=== PATIENT | female | born 1965 ===

== ENCOUNTER 2025-06-19 10:15 | Inpatient (IN) | payer OTHER ==
[~2025-06-19] VITALS: Ht 160 cm; Wt 113.4 kg
[2025-06-19] MEDS ORDERED: METFORMIN HCL500 M3 PO (13:06)
[2025-06-19] MEDS ORDERED: COZAAR25 MG PO (13:07)
[2025-06-19] MEDS ORDERED: GLIPIZIDE XL10 MG PO (13:07)
[2025-06-19] MEDS ORDERED: PROAIR RESPICL90 MCG IH (13:08)
[2025-06-19] MEDS ORDERED: SYNJARDY XR 121 EACH PO (13:08)
[2025-06-19] MEDS ORDERED: ZYRTEC10 M3 PO (13:08)
[2025-06-19] MEDS ORDERED: ROSUVASTATIN CA40 MG PO (13:08)
[2025-06-19] MEDS ORDERED: VENTOLIN HFA18 GM IH (13:08)
[2025-06-19 13:09] VITALS: BP 130/84
[2025-06-19 13:28] LABS: COVID-19 AG NEGATIVE (NEGATIVE)
[2025-06-19 14:22] VITALS: BP 122/78
[2025-06-19 15:35] LABS: RH POSITIVE
[2025-06-28] MEDS ORDERED: THROMBIN,HU/FIBRINOGEN/CALCIUM 10 ML SYRINGE TOP ONE (08:15)
[2025-06-28] MEDS ORDERED: POVIDONE-IODINE 118 ML BOTT TOP ONE (08:15)
[2025-06-28] MEDS ORDERED: CEFAZOLIN SODIUM 1,000 MG VIAL IV ONE (08:15)
[2025-06-28] MEDS ORDERED: METRONIDAZOLE/SODIUM CHLORIDE 500 MG/100 ML PIGGYBACK IV ONE (08:15)
[2025-06-28] MEDS ORDERED: VISTASEAL DUAL APPICATOR 1 EACH APPL TOP ONE (08:15)
[2025-06-28] MEDS ORDERED: KETOROLAC TROMETHAMINE 30 MG VIAL IV ONE (09:00)
[2025-06-28] MEDS ORDERED: METOCLOPRAMIDE HCL 5 MG/ML VIAL IV SCH (09:00)
[2025-06-28] MEDS ORDERED: FAMOTIDINE/PF 20 MG/2 ML VIAL IV PUSH SCH (09:00)
[2025-06-28] MEDS ORDERED: DOCUSATE SODIUM 100MG CAP PO SCH (09:00)
[2025-06-28] MEDS ORDERED: OxyCODONE HCL 5 MG TABLET (ROXICODONE) PO PRN (09:00)
[2025-06-28] MEDS ORDERED: SIMETHICONE 125 MG CAPSULE PO SCH (09:00)
[2025-06-28] MEDS ORDERED: CEFAZOLIN SODIUM 1,000 MG VIAL IV SCH (09:00)
[2025-06-28] MEDS ORDERED: RINGERS SOLUTION,LACTATED 1,000 ML IV SCH (09:00)
[2025-06-28] MEDS ORDERED: MORPHINE SULFATE 4 MG/ML CARTRIDGE IV PRN (09:00)
[2025-06-28] MEDS ORDERED: SUGAMMADEX SODIUM 200 MG/2 ML VIAL IV ONE (09:45)
[2025-06-28] MEDS ORDERED: KETOROLAC TROMETHAMINE 30 MG VIAL ONE (09:58)
[2025-06-28] MEDS ORDERED: FAMOTIDINE/PF 20 MG/2 ML VIAL ONE (09:59)
[2025-06-28] MEDS ORDERED: CEFAZOLIN SODIUM 1,000 MG VIAL ONE (09:59)
[2025-06-28] MEDS ORDERED: METOCLOPRAMIDE HCL 5 MG/ML VIAL ONE (10:42)
[2025-06-28 11:18] LABS: BASO % 0.2 % (0.1-1.2); EOS # 0.07 (0.04-0.54); EOS % 0.5 % (0.7-7.0); LYMPH # 2.15 (1.18-3.74); LYMPH % 14.4 % (19.3-53.1); MEAN PLATELET VOLUME 10.50 fl (9.4-12.4); MONO # 0.75 (0.24-0.82); MONO % 5.0 % (4.7-12.5); NEUT # 11.83 (1.56-6.13); NEUT % 79.5 % (34.0-71.1); RED CELL DISTRIBUTION WIDTH 13.7 % (11.6-14.4)
[2025-06-28 12:00] VITALS: BP 122/78
[2025-06-28] MEDS ORDERED: ACETAMINOPHEN 500 MG GEL..CAP PO SCH (12:00)
[2025-06-28 12:35] LABS: BUN CREA RATIO 18.0 (7.0-25.0); CREATININE SERUM 0.57 mg/dL (0.55-1.02); GFR 107.83; GLUCOSE FASTING 116.0 mg/dL (65-100); OSMOLALITY SERUM 283.0 MOSM/KG (275-295)
[2025-06-28 16:00] VITALS: BP 125/79; O2SAT 97
[2025-06-28] MEDS ORDERED: INSULIN LISPRO 1,000 UNIT/10 ML UNITS SUBCUTANEO PRN (17:00)
[2025-06-28] MEDS ORDERED: IPRATROPIUM/ALBUTEROL SULFATE 3 ML AMPUL.NEB IH SCH (17:00)
[2025-06-28] MEDS ORDERED: ENALAPRILAT DIHYDRATE 1.25 MG/ML VIAL IV PRN (17:00)
[2025-06-28] MEDS ORDERED: DEXTROSE 50 % IN WATER 0.5 G/ML VIAL IV PRN (17:00)
[2025-06-28] MEDS ORDERED: GABAPENTIN 300 MG CAPSULE PO SCH (21:00)
[2025-06-28] MEDS ORDERED: CELECOXIB 200 MG CAPSULE PO SCH (21:00)
[2025-06-28 21:03] VITALS: BP 106/73
[2025-06-29 00:24] VITALS: BP 159/70; O2SAT 97
[2025-06-29 04:43] LABS: BASO % 0.1 % (0.1-1.2); EOS # 0.19 (0.04-0.54); EOS % 2.1 % (0.7-7.0); LYMPH # 2.20 (1.18-3.74); LYMPH % 23.8 % (19.3-53.1); MEAN PLATELET VOLUME 10.70 fl (9.4-12.4); MONO # 0.65 (0.24-0.82); MONO % 7.0 % (4.7-12.5); NEUT # 6.17 (1.56-6.13); NEUT % 66.7 % (34.0-71.1); RED CELL DISTRIBUTION WIDTH 13.7 % (11.6-14.4)
[2025-06-29 05:04] LABS: BUN CREA RATIO 14.0 (7.0-25.0); CREATININE SERUM 0.42 mg/dL (0.55-1.02); GFR 153.38; GLUCOSE FASTING 121.0 mg/dL (65-100); OSMOLALITY SERUM 288.0 MOSM/KG (275-295)
[2025-06-29 08:02] LABS: BASO % 0.2 % (0.1-1.2); EOS # 0.21 (0.04-0.54); EOS % 2.5 % (0.7-7.0); LYMPH # 2.01 (1.18-3.74); LYMPH % 24.3 % (19.3-53.1); MEAN PLATELET VOLUME 9.80 fl (9.4-12.4); MONO # 0.58 (0.24-0.82); MONO % 7.0 % (4.7-12.5); NEUT # 5.42 (1.56-6.13); NEUT % 65.8 % (34.0-71.1); RED CELL DISTRIBUTION WIDTH 13.9 % (11.6-14.4)
[2025-06-29 08:44] VITALS: BP 140/76; O2SAT 96
[2025-06-29] MEDS ORDERED: ENOXAPARIN SODIUM 40 MG/0.4 ML SYRINGE SUBCUTANEO SCH (09:00)
[2025-06-29] MEDS ORDERED: ROSUVASTATIN CALCIUM 20 MG TABLET PO SCH (09:00)
[2025-06-29] MEDS ORDERED: LOSARTAN POTASSIUM 25 MG TABLET PO SCH (09:00)
== END 2025-06-29 13:19 | disposition home or self-care (01) | DRG 743 ==
LOC: OB/GYN 06-28 05:40 → O/R 06-28 05:40 → SURH 06-28 07:00 → OB/GYN 06-28 10:49
PROVIDERS: Obstetrics & Gynecology; ADMIT Obstetrics & Gynecology Gynecologic Oncology; ATTEND Obstetrics & Gynecology Gynecologic Oncology
PROC: 0UT74ZZ Resection of Bilateral Fallopian Tubes, Percutaneous Endoscopic Approach (ICD-10-PCS; 2025-06-28)
PROC: 0UT24ZZ Resection of Bilateral Ovaries, Percutaneous Endoscopic Approach (ICD-10-PCS; 2025-06-28)
PROC: 07BC4ZZ Excision of Pelvis Lymphatic, Percutaneous Endoscopic Approach (ICD-10-PCS; 2025-06-28)
PROC: 8E0W4CZ Robotic Assisted Procedure of Trunk Region, Percutaneous Endoscopic Approach (ICD-10-PCS; 2025-06-28)
PROC: 0UT94ZZ Resection of Uterus, Percutaneous Endoscopic Approach (ICD-10-PCS; principal; 2025-06-28 07:00)
DX: D25.1 Intramural leiomyoma of uterus (principal); D25.0 Submucous leiomyoma of uterus; N80.03 Adenomyosis of the uterus; N84.0 Polyp of corpus uteri; D36.0 Benign neoplasm of lymph nodes
CPT/HCPCS: 58548; S2900